=== PATIENT | female | born 1990 | race Caucasian/White ===

== ENCOUNTER 2017-03-21 03:45 | Emergency (ER) | payer OTHER ==
[~2017-03-21] VITALS: Ht 162.6 cm; Wt 70.0 kg
[2017-03-21 03:48] VITALS: BP 127/75
[2017-03-21] MEDS ORDERED: METOCLOPRAMIDE INJ 10MG/2ML VIAL (J2765) IV ONE (04:00)
[2017-03-21] MEDS ORDERED: NS 1,000 ML IV ONE (04:00)
[2017-03-21 04:47] LABS: BASO % 0.7 % (0.0-1.0); EOS % 0.5 % (0.0-3.0); LARGE UNSTAINED CELL # 0.1 K/mm3 (0.0-0.4); LARGE UNSTAINED CELL % 1.2 % (0.0-4.0); LYMPH # 0.8 K/mm3 (1.5-6.5); LYMPH % 14.4 % (24.0-44.0); MEAN CORPUSCULAR HEMOGLOBIN 29.8 pg (27.0-33.0); MEAN CORPUSCULAR VOLUME 87.7 fl (80.0-96.0); MONO # 0.2 K/mm3 (0.0-0.8); NEUTROPHILS # 4.6 K/mm3 (1.8-7.7); NEUTROPHILS % 79.3 % (36.0-66.0); PLATELET COUNT, AUTOMATED 292 k/mm3 (150-450); RED CELL DISTRIBUTION WIDTH 11.6 % (11.5-14.5); WHITE BLOOD COUNT 5.8 K/mm3 (4.0-10.0)
[2017-03-21 04:57] LABS: CONTROL LINE HCG INT CTR LINE PRESENT
[2017-03-21 05:03] LABS: ALBUMIN 3.6 GM/DL (3.2-5.2); ALBUMIN/GLOBULIN RATIO 0.92 (1.00-1.93); ALKALINE PHOSPHATASE 77 U/L (45-117); ALT/SGPT 22 U/L (12-78); AMYLASE 63 U/L (25-115); ANION GAP 8 MEQ/L (8-16); AST/SGOT 24 U/L (15-37); BILIRUBIN,DIRECT 0.1 MG/DL (0.0-0.2); BILIRUBIN,TOTAL 0.5 MG/DL (0.2-1.0); BLOOD UREA NITROGEN 19 MG/DL (7-18); CALCIUM LEVEL 8.7 MG/DL (8.5-10.1); CARBON DIOXIDE LEVEL 29 MEQ/L (21-32); CHLORIDE LEVEL 101 MEQ/L (98-107); CREATININE FOR GFR 0.78 MG/DL (0.55-1.02); GLOMERULAR FILTRATION RATE > 60.0 (>60); GLUCOSE, FASTING 115 MG/DL (70-105); POTASSIUM SERUM 4.2 MEQ/L (3.5-5.1); SODIUM LEVEL 138 MEQ/L (136-145); TOTAL PROTEIN 7.5 GM/DL (6.4-8.2)
[2017-03-21] MEDS ORDERED: CIPR-249 PO (05:35)
[2017-03-21] MEDS ORDERED: REGL10TA6 PO (05:35)
[2017-03-21] MEDS ORDERED: CIPROFLOXACIN 500 MG TAB PO ONE (05:45)
== END 2017-03-21 06:28 | disposition home or self-care (01) ==
LOC: M ED 03:45
DX: K29.70 Gastritis, unspecified, without bleeding (principal); R11.10 Vomiting, unspecified; N39.0 Urinary tract infection, site not specified
CPT/HCPCS: 80048; 80076; 81001; 82150; 83690; 84703; 85025; 87086; 96374; 99283; J2765

== ENCOUNTER → 2017-05-15 | Outpatient (REF) | payer OTHER ==
[~2017-05-15] MED LIST: CIPR-249 PO; REGL10TA6 PO
== END ==
LOC: M LAB REF 17:45
PROVIDERS: ATTEND Physician Assistant
DX: J02.9 Acute pharyngitis, unspecified (principal)

== ENCOUNTER 2017-08-10 05:31 | Emergency (ER) | payer OTHER ==
[~2017-08-10] VITALS: Ht 160 cm; Wt 65.5 kg
[2017-08-10] MEDS ORDERED: ZOFR4TAB3 PO ×2 (05:47→07:43)
[2017-08-10] MEDS ORDERED: MAXA5TAB10 PO (05:47)
[2017-08-10] MEDS ORDERED: ONDANSETRON 4MG/2ML VIAL (J2405) As Ordered ONE (06:20)
[2017-08-10] MEDS ORDERED: ONDANSETRON 4MG/2ML VIAL (J2405) IV ONE (06:30)
[2017-08-10] MEDS ORDERED: NS 1,000 ML IV ONE (06:30)
[2017-08-10 06:38] LABS: BASO # 0.1 10^3/uL (0.0-0.2); BASO % 0.7 % (0.0-1.0); EOS % 0.3 % (0.0-3.0); IMMATURE GRANULOCYTE % 0.3 % (0-0); LYMPH # 0.8 10^3/uL (1.5-6.5); LYMPH % 10.6 % (24.0-44.0); MEAN CORPUSCULAR HEMOGLOBIN 29.1 pg (27.0-33.0); MEAN CORPUSCULAR HGB CONC 34.1 g/dl (32.0-36.5); MEAN CORPUSCULAR VOLUME 85.3 fl (80.0-96.0); MONO # 0.3 10^3/uL (0.0-0.8); MONO % 3.4 % (0.0-5.0); NEUTROPHILS # 6.3 10^3/uL (1.8-7.7); NEUTROPHILS % 84.7 % (36.0-66.0); PLATELET COUNT, AUTOMATED 280 10^3/uL (150-450); RED CELL DISTRIBUTION WIDTH 12.2 % (11.5-14.5); WHITE BLOOD COUNT 7.4 10^3/uL (4.0-10.0)
[2017-08-10 07:02] LABS: ALBUMIN 3.7 GM/DL (3.2-5.2); ALKALINE PHOSPHATASE 67 U/L (45-117); ALT/SGPT 18 U/L (12-78); ANION GAP 7 MEQ/L (8-16); AST/SGOT 21 U/L (7-37); BILIRUBIN,DIRECT < 0.1 MG/DL (0.0-0.2); BILIRUBIN,TOTAL 0.4 MG/DL (0.2-1.0); BLOOD UREA NITROGEN 16 MG/DL (7-18); CALCIUM LEVEL 8.8 MG/DL (8.5-10.1); CARBON DIOXIDE LEVEL 26 MEQ/L (21-32); CHLORIDE LEVEL 104 MEQ/L (98-107); CREATININE FOR GFR 0.77 MG/DL (0.55-1.02); GLOMERULAR FILTRATION RATE > 60.0 (>60); GLUCOSE, FASTING 117 MG/DL (70-105); POTASSIUM SERUM 4.2 MEQ/L (3.5-5.1); SODIUM LEVEL 137 MEQ/L (136-145); TOTAL PROTEIN 7.8 GM/DL (6.4-8.2)
[2017-08-10 07:32] LABS: YEAST LIKE CELL URINE AUTO SMALL
[2017-08-10 08:11] VITALS: BP 107/63
== END 2017-08-10 08:15 | disposition home or self-care (01) ==
LOC: M ED 05:31
DX: R11.2 Nausea with vomiting, unspecified (principal); R51 Headache; Z79.899 Other long term (current) drug therapy
CPT/HCPCS: 80048; 80076; 81001; 81025; 83690; 85025; 96361; 96374; 99284; J2405